=== PATIENT | female | born 1945 | race Caucasian/White ===

== ENCOUNTER 2023-02-09 10:00 | Outpatient (RCR) | payer MEDICARE, SELFPAY ==
--- NOTE | 2022-12-24 09:04 | HP.PTEVAL_ITS ---
Patient's Visit Information BELEM KELLY is a 77 year old F referred to Physical Therapy by Dr. Lary Yoon MD with a diagnosis of Imbalance and falls. Date of Evaluation: 12/23/22 Physical Therapist: Kevin Munguia DPT - Visit Plan Frequency: 2x /Week Duration: 4 Weeks Plan: Start with BLE strengthening and balance exercises. Progress SLS and dynamic mobility. PRogress to HEP, add in print outs to increase patient carry over. - Subjective Pt. is here today for her initial evaluation with diagnosis of imbalance and falls. Pt. arrives with her sister whom she lives with. Sister did not come back with her to the evaluation. Pt. reports no falling and no issues with her balance. She reports no major issues. Sister did report that she has been veering to the right when she is walking. patient reports no N/T and no LE weakness. Pt. reports no issues overall. She reports no really knowing why she is here. After talking with her sister she has some problems with balance, but has not fallen. Pt. lives with her sister. - Objective POSTURE: Pt. has increased FH posture, but rest of posture is not too bad. PALPATION: No issues with palpation of BLEs. No marked edema. NEURO: Normal sensation and B patellar tendon and Achillies DTR. ROM: Pt. has good ROM of BLEs without increase in symptoms. MMT: RLE: knee: ext 27#, flexion 20.8; ankle DF 23.7#, PF 33.8#; hip flexion 19.8#, abd 22.3#. LLE: ext 33#, flexion 19.3; ankle DF 24.5#, PF: 39.4; hip: flexion 20.1#, abd 17.6#. GAIT: Pt. has fairly normal gait pattern, she does have a tendency to deviate to R side, but is able to correct. - Balance/Special Test Scores Functional Gait Assessment Score: 26 % Disability: 13.3400 Lower Extremity Functional Score: 49 TUG Test Time Seconds: 15.7 - Goals Goal 1:: LTG: Pt. to be I with HEP. Goal Time Frame: 4-6 Weeks Goal 2:: LTG: Pt. to have increased TUG score to less than 8 sec indicating reduced risk for falls. Goal Time Frame: 4-6 Weeks Goal 3:: LTG: Pt. to have increased FGA score to 25/30 indicating reduce risk for future falls. Goal Time Frame: 4-6 Weeks Goal 4:: LTG: pt. to have increased BLE strength by 1/2 grade in order to increase stability with gait and functional mobility. Goal Time Frame: 4-6 Weeks - Rehabilitation Potential Physical Therapy Diagnosis: Pt. would benefit from PT to increase BLE strength and balance with progression to HEP. Pt. will need print outs to increase carry over. Rehabilitation Potential: Good - Anticipated Interventions Patient/Client Instruction: Educate patient on: Condition, Plan of Care, Risk Factors, Benefits of Fitness Program For the Purpose of:: To improve safety, To improve health and function, To foster healthy habits, To improve decision making, To facilitate caregiver knowl edge, To improve self management, To prevent re-injury, To improve ability to perform tasks related to life management Therapeutic Exercise to Include: Strength training, Power training, Endurance training, Balance training, Coordination, Body mechanics For the Purpose of:: To increase ROM, To improve nutrient delivery to tissue, To increase oxygenation perfusion, To improve muscle performance and motor function, To improve ability to perform ADL's, To increase tolerance to activity/condition/position, To improve gait and locomotor functions, To improve health of tissue, To decrease soft tissue restriction, To increase flexibility/ROM, To improve endurance, To improve balance, To improve safety with gait Thank you for the opportunity to evaluate your patient. For Medicare and Medicare HMO plans, please review the plan of care and approve it. It will need to be FAXED BACK to us at [phone] for Medicare purposes. For Medicare only, by signing this I certify the plan of care. Please let me know if there are questions or concerns regarding this plan of care. Physician Signature: Date:
--- NOTE | 2023-02-09 11:43 | HP.PTDCSUM ---
It has been my pleasure to treat BELEM KELLY referred by Dr. Lary Yoon MD, with the diagnosis of Imbalance and falls for a total of 13 visit(s). Discharge Date: 02/09/23 Please see the following information for a summary of their discharge status. Subjective: Pt. reports overall doing very well. Pt. reports being 100% better. Pt. reports being HEP compliant. % Improvement: 100 Objective/Function: TU.2sec no AD,. FGA: 28/30. Equal BLE strength with out issues. GAIT: Pt. has normal gait pattern. She was able to complete without deviating from path well. No major issues noted. Goal 1:: LTG: Pt. to be I with HEP. Goal Progress: Goal Met Goal 2:: LTG: Pt. to have increased TUG score to less than 8 sec indicating reduced risk for falls. Goal Progress: Goal Met Goal 3:: LTG: Pt. to have increased FGA score to 25/30 indicating reduce risk for future falls. Goal Progress: Goal Met Goal 4:: LTG: pt. to have increased BLE strength by 1/2 grade in order to increase stability with gait and functional mobility. Goal Progress: Goal Met Plan: Pt. to be DC from PT at this point in time. Discharge Comments: Pt. did very well with PT. She has met all of her goals. We focused on balance and LE strengthening. I have given her an HEP to complete daily at home. I also recommended a progressive walking program to stay active. Pt. consents to this plan. Sister as well. Pt will be DC to HEP at this point in time. If there are questions or concerns regarding this patient's physical therapy, please feel free to call me at [phone]. Thank you for the referral of this patient. Sincerely, Kevin Munguia, DPT Balance/Gait/Functional tests - Balance/Special Test Scores Functional Gait Assessment Score: 28 % Disability: 6.6700 Lower Extremity Functional Score: 49 TUG Test Time Seconds: 8.2 Tug Test: <10 sec.=free mobile
== END 2023-02-09 13:36 | disposition home or self-care (01) ==
LOC: PT 10:00
PROVIDERS: PCP Internal Medicine; Referring Provider Internal Medicine; Visit Provider Internal Medicine
DX: F03.90 Unspecified dementia, unspecified severity, without behavioral disturbance, psychotic disturbance, mood disturbance, and anxiety (principal); R26.89 Other abnormalities of gait and mobility; R29.6 Repeated falls
CPT/HCPCS: 97110; 97161; 97164